=== PATIENT | male | born 1975 | race African-American/Black ===

== ENCOUNTER 2017-08-04 07:53 | Day surgery (SDC) | payer MEDICARE ==
[~2017-08-04 07:53] MED LIST: no home
[2017-08-04 08:07] LABS: EOSINOPHIL (%) 0.7 % (0-5); EOSINOPHIL COUNT 0.1 K/uL (0-0.3); HEMATOCRIT 43.3 % (38.0-50.0); IMMATURE GRANULOCYTE (%) 0.8 % (0.0-0.7); IMMATURE GRANULOCYTE COUNT 0.1 K/uL; INSTRUMENT ABS NEUTROPHIL CT 2.5 K/uL; LYMPHOCYTE COUNT 5.1 K/uL (1.0-2.8); MCH 27.5 PG (29.0-34.0); MCV 83.3 FL (86-99); MEAN PLAT.VOLUME 9.3 uM^3 (9.0-12.4); MONOCYTE (%) 10.8 % (3-12); MONOCYTE COUNT 0.9 K/uL (0-0.8); NEUTROPHIL (%) 28.6 % (45-76); NEUTROPHIL COUNT 2.5 K/uL (1.8-6.4); PLATELET COUNT 338 K/uL (156-360); RBC DIS.WIDTH-SD 36.6 % (39-53); WHITE BLOOD COUNT 8.6 K/uL (4.1-10.2)
[2017-08-04 08:12] LABS: PROTHROMBIN TIME 11.5 SEC (10.2-12.9)
[2017-08-04 08:15] LABS: AMYLASE 42 IU/L (1-118); CHLORIDE 102 mEq/L (99-109); POTASSIUM 3.5 mEq/L (3.7-5.4); PTT 25.6 SEC (25-37); SODIUM 140 mEq/L (136-147)
[2017-08-04 08:17] LABS: GLUCOSE 224 mg/dL (70-99)
[2017-08-04 08:19] LABS: ANION GAP 20 MEQ/L (2-14)
[2017-08-04 08:20] LABS: SERUM ETHYL ALCOHOL < 10 mg/dL
[2017-08-04 08:21] LABS: GFR ESTIMATE (CALCULATED) > 59 mL/min/
[2017-08-04 08:22] LABS: UREA NITROGEN (BUN) 12 mg/dL (9-23)
[2017-08-04 08:24] LABS: LIPASE 21 U/L (1.0-51.0)
[2017-08-04 08:27] LABS: TROP-I INTERPRETATION NEGATIVE; TROPONIN-I < 0.01 ng/mL (0.0-0.30)
[2017-08-04 10:32] LABS: BASE EXCESS -13.7 mEq/L (-3 to +3); BICARBONATE 15.3 mEq/L (22-26); CARBOXY HGB 1.2 % (0-5); METHEMOGLOBIN 1.4 % (0-1.5); PCO2 47 mm Hg (35-45); PO2 58 mm Hg (80-100); pH 7.12 (7.35-7.45)
[2017-08-04 10:33] LABS: SITE DRAWN BY CATH LAB
[2017-08-04 10:34] LABS: COMMENTS - BLOOD GASES C+; DEVICE 980; FI02 100 %; MECHANICAL RATE 20 resp/min; MODE AC
[2017-08-04 10:35] LABS: PEEP 5 CM/H20; TIDAL VOLUME 600 ML
== END 2017-08-04 11:15 ==
LOC: EME 07:53 → CATH 08:46 → EME 08:46 → CATH 11:15
PROVIDERS: Emergency Medicine; Internal Medicine Interventional Cardiology
DX: I21.09 ST elevation (STEMI) myocardial infarction involving other coronary artery of anterior wall (principal); I97.710 Intraoperative cardiac arrest during cardiac surgery; I25.10 Atherosclerotic heart disease of native coronary artery without angina pectoris; E66.01 Morbid (severe) obesity due to excess calories; E78.5 Hyperlipidemia, unspecified; Z88.0 Allergy status to penicillin
CPT/HCPCS: 36600; 80048; 81003; 82150; 82803; 83690; 84484; 85025; 85347; 85610; 85730; 86850; 86900; 86901; 90832; 92950; 93005; 94002; 99281; 99285; C1725; C1769; C1887; C1894; G0480; J0171; J0282; J0461; J1265; J1644; J2250; J2270; J2405; J3010; J3246; J3475; J7050